=== PATIENT | female | born 1960 | race Caucasian/White ===

== ENCOUNTER 2023-06-27 13:38 | Outpatient (CLI) | payer MEDICARE, SELFPAY ==
--- NOTE | 2023-06-27 13:44 | USCV_ITS ---
Lizzy Sethi Age: 62 Gender: F : 1960 Exam Date: 06/27/2023 13:51 Ordering Phys: Bob Beckham MD Technologist: Exam Location: [facility] [place]ication: 4th heart sound murmur BP: 130 / 70 HR: 97 Rhythm: Sinus Technical Quality: Adequate MEASUREMENTS (Male / Female) Normal Values 2D ECHO LV Diastolic Diameter PLAX 3.6 cm 4.2 - 5.9 / 3.9 - 5.3 cm IVS Diastolic Thickness 0.9 cm 0.6 - 1.0 / 0.6 - 0.9 cm IVS Systolic Thickness 0.9 cm LVPW Diastolic Thickness 0.7 cm 0.6 - 1.0 / 0.6 - 0.9 cm LVPW Systolic Thickness 1.3 cm LVOT Diameter 2.0 cm LV Ejection Fraction 2D Teich 65.6 % LV Ejection Fraction MOD 2C 58.1 % LV Ejection Fraction 2C AL 59.2 % LA Diameter 1.9 cm RA Systolic Volume 4C AL 11.5 ml RA Systolic Volume 4C MOD 11.2 ml IVC Diameter 1.2 cm M-MODE LA Ao Ratio MM 0.8 AV Cusp Separation MM 2.5 cm DOPPLER LVOT Peak Velocity 65.0 cm/s AV Area Cont Eq vti 2.3 cm squared AV Area Cont Eq pk 2.4 cm squared MV Peak Velocity 64.0 cm/s MV Area PHT 4.1 cm squared Mitral E to A Ratio 1.3 TR Peak Velocity 270.0 cm/s TR Peak Gradient 29.2 mmHg TR Mean Velocity 156.0 cm/s TR Mean Gradient 12.9 mmHg TR Velocity Time Integral 64.0 cm TV Peak E Velocity 74.0 cm/s Right Atrial Pressure 3.0 mmHg Pulmonary Artery Systolic Pressu 32.2 mmHg PV Peak Velocity 75.0 cm/s FINDINGS Left Ventricle Left ventricle is normal in size. LV systolic function is normal with EF of 60 to 65%. No regional wall motion abnormalities are seen. Diastolic function is normal Right Ventricle Normal in size and function Right Atrium Normal in size Left Atrium Normal in size Mitral Valve Structurally normal mitral valve. Trace mitral regurgitation. Aortic Valve Not well visualized however grossly appears to be opening well. . Continuous wave doppler exam not performed on aortic valve. Gradient across the valve can not be calculated. Tricuspid Valve Mild tricuspid regurgitation. Pulmonary artery systolic pressure is normal. Pulmonic Valve Not well visualized Pericardium Normal Aorta Normal in size IVC Appears to be normal CONCLUSIONS LV systolic function is normal with EF of 60-65% Trace mitral regurgitation Mild tricuspid regurgitation. No comparison studies are available. Que Velasquez MD (Electronically Signed) Final Date: 09 July 2023 11:59 S
== END 2023-06-27 13:39 | disposition home or self-care (01) ==
LOC: RAD 13:40
PROVIDERS: Visit Provider Family Medicine
DX: R01.2 Other cardiac sounds (principal); R00.8 Other abnormalities of heart beat; I07.1 Rheumatic tricuspid insufficiency
CPT/HCPCS: 93306

== ENCOUNTER 2024-06-10 09:01 | Outpatient (CLI) | payer MEDICARE, SELFPAY ==
--- NOTE | 2024-06-10 09:10 | CT_ITS ---
WS: [id number] LDCT LUNG CANCER SCREENING TECHNIQUE: Noncontrast CT of the chest with coronal and sagittal reformatted images. CLINICAL INFORMATION: NICOTINE DEPENDENCE, CIGARETTES COMPARISON: 2019 DLP: 42.69 mGy.cm DIvol: Mean CTDIvol: 0.60 (mGy) All CT scans at [facility] use at least one of these dose optimization techniques: automated exposure control; mA and/or kV adjustment per patient size (includes targeted exams where dose is matched to clinical indication); or iterative reconstruction. FINDINGS: Calcified granuloma RIGHT upper lobe. Fibrosis in the lung apices. 3 to 4 mm nodule LEFT upper lobe at the lung apex. Advanced chronic emphysematous changes. Hyperinflation. Aortic calcification. Coronary calcification. No mediastinal or hilar lymphadenopathy. No axillary lymphadenopathy. Chronic appearing compression supreme plate T12 with slight retropulsion. Mild central canal stenosis. Loss of approximately 20% for body height with endplate Schmorl's node. Small esophageal canal hernia. CT/CT lung screening [id number] IMPRESSION: LUNG-RADS: 2-Benign Appearance or Behavior FOLLOW UP: 12 Month: Continue annual screening with LDCT
--- NOTE | 2024-06-10 09:24 | XR_ITS ---
WS: [email or web address] SCREENING DEXA SCAN [facility] CLINICAL INFORMATION: POSTMENOPAUSAL COMPARISON: 2018 FINDINGS: The L1-L4 bone mineral density measures 0.758 g/cm2. This corresponds to a T score score of -3.5 and Z score of -1.1. Left femoral neck bone mineral density measures 0.675 g/cm2. This corresponds to a T score of -2.6 and Z score of -0.9. Right femoral neck bone mineral density measures 0.661 g/cm2. This corresponds to a T score -2.7of and Z score of -1.0. Mean femoral neck bone mineral density measures 0.668 g/cm2. This corresponds to a T score of -2.7 and Z score of -0.9. XR/XR DEXA axial skeleton* [id number] IMPRESSION: Osteoporosis lumbar spine and femoral necks. Patient's FRAX calculated 10 year probability for major osteoporotic fracture i s 29.4% and osteoporotic hip fracture is 12.7%. Bone mineral density lumbar spine decreased 8.3% Bone marrow density femoral necks decreased 12.8%
== END 2024-06-10 09:02 | disposition home or self-care (01) ==
PROVIDERS: Visit Provider Family Medicine
DX: Z12.2 Encounter for screening for malignant neoplasm of respiratory organs (principal); F17.210 Nicotine dependence, cigarettes, uncomplicated; Z78.0 Asymptomatic menopausal state; J84.10 Pulmonary fibrosis, unspecified; R91.1 Solitary pulmonary nodule; J43.9 Emphysema, unspecified; R91.8 Other nonspecific abnormal finding of lung field; I70.0 Atherosclerosis of aorta; I25.10 Atherosclerotic heart disease of native coronary artery without angina pectoris; S22.080D Wedge compression fracture of T11-T12 vertebra, subsequent encounter for fracture with routine healing; X58.XXXD Exposure to other specified factors, subsequent encounter; M48.00 Spinal stenosis, site unspecified; R93.7 Abnormal findings on diagnostic imaging of other parts of musculoskeletal system; K44.9 Diaphragmatic hernia without obstruction or gangrene; M81.0 Age-related osteoporosis without current pathological fracture
CPT/HCPCS: 71271; 77080